=== PATIENT | male | born 1970 ===

== ENCOUNTER 2018-11-17 19:58 | Emergency (ER) | payer SELFPAY ==
[2018-11-17 20:53] LABS: CHLORIDE,CL 101 mmol/L (98-107); SODIUM,NA 137 mmol/L (136-148)
--- NOTE | 2018-11-17 21:19 | EDM.PDOC ---
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 No radiation to the neck, arm or bakc. His left chest is tender. The pain does not change with movement, deep breath or cough. He has not had any nausea or sweating. "a little shortness of breath". Patient has a history of spontaneous pneumothorax 2 and, according to the patient, a heart attack 7 years ago. chest area Pain Score (Numeric/FACES): 3 - Related Data Allergies Allergy/AdvReac Type Severity Reaction Status Date / Time No Known Allergies Allergy Verified 11/17/18 20:06 Home Meds: Home Meds Aspirin 81 mg PO DAILY 11/17/18 [History] Carvedilol 12.5 mg PO DAILY 11/17/18 [History] Cholecalciferol (Vitamin D3) [D-2000] 1 cap PO DAILY 11/17/18 [History] Lisinopril 10 mg PO DAILY 11/17/18 [History] atorvaSTATin [Lipitor] 20 mg PO BEDTIME 11/17/18 [History] Past Medical History HEENT History: Reports: None Cardiovascular History: Reports: High Cholesterol, Hypertension, Stents, Other ( See Below) Other Cardiovascular History: Heart Attck Respiratory History: Reports: None Gastrointestinal History: Reports: None Genitourinary History: Reports: None Musculoskeletal History: Reports: None Neurological History: Reports: None Psychiatric History: Reports: None Endocrine/Metabolic History: Reports: None Hematologic History: Reports: None Immunologic History: Reports: None Oncologic (Cancer) History: Reports: None Dermatologic History: Reports: None - Infectious Disease History Infectious Disease History: Reports: None - Past Surgical History Head Surgeries/Procedures: Reports: None Social & Family History - Family History Family Medical History: Noncontributory - Tobacco Use Smoking Status *Q: Never Smoker - Caffeine Use Caffeine Use: Reports: Energy Drinks - Recreational Drug Use Recreational Drug Use: No ED ROS GENERAL - Review of Systems Review Of Systems: ROS reveals no pertinent complaints other than HPI. ED EXAM, GENERAL - Physical Exam Exam: See Below Exam Limited By: No Limitations General Appearance: Alert, No Apparent Distress Ears: Normal External Exam, Normal TMs Nose: Normal Inspection Throat/Mouth: Normal Inspection, Normal Oropharynx Head: Atraumatic, Normocephalic Neck: Normal Inspection Respiratory/Chest: No Respiratory Distress, Lungs Clear, Normal Breath Sounds, Other (Tenderness left midclavicular line from nipple to a ICS) Cardiovascular: Normal Peripheral Pulses, Regular Rate, Rhythm, No Edema, No Murmur GI/Abdominal: Normal Bowel Sounds, Soft, Non-Tender, No Distention Back Exam: Normal Inspection Extremities: Normal Inspection Neurological: Alert, Oriented Psychiatric: Normal Affect, Normal Mood Skin Exam: Warm, Dry, Intact, Normal Color, No Rash Lymphatic: No Adenopathy Course - Vital Signs Last Recorded V/S: Last Vital Signs Temp 37.5 C 11/17/18 20:06 Pulse 83 11/17/18 20:06 Resp 18 11/17/18 20:06 BP 154/89 H 11/17/18 20:06 Pulse Ox 98 11/17/18 20:06 - Orders/Labs/Meds Orders: Active Orders 24 hr Category Date Time Status EKG 12 Lead [EKG Documentation Completion] [RC] STAT Care 11/17/18 20:35 Ordered Chest 2V [CR] Stat Exams 11/17/18 20:35 Ordered Labs: Laboratory Tests 11/17/18 11/17/18 Range/Units 20:15 20:15 WBC 6.11 (4.0-11.0) K/uL RBC 4.93 (4.50-5.90) M/uL Hgb 14.6 (13.0-17.0) g/dL Hct 42.6 (38.0-50.0) % MCV 86.4 (80.0-98.0) fL MCH 29.6 (27.0-32.0) pg MCHC 34.3 (31.0-37.0) g/dL RDW Std Deviation 40.4 (28.0-62.0) fl RDW Coeff of Carlos 13 (11.0-15.0) % Plt Count 243 (150-400) K/uL MPV 11.10 (7.40-12.00) fL Neut % (Auto) 49.2 (48.0-80.0) % Lymph % (Auto) 41.2 H (16.0-40.0) % Gaines % (Auto) 7.7 (0.0-15.0) % Eos % (Auto) 1.6 (0.0-7.0) % Baso % (Auto) 0.3 (0.0-1.5) % Neut # (Auto) 3.0 (1.4-5.7) K/uL Lymph # (Auto) 2.5 H (0.6-2.4) K/uL Gaines # (Auto) 0.5 (0.0-0.8) K/uL Eos # (Auto) 0.1 (0.0-0.7) K/uL Baso # (Auto) 0.0 (0.0-0.1) K/uL Nucleated RBC % 0.0 /100WBC Nucleated RBCs # 0 K/uL Sodium 137 (136-148) mmol/L Potassium 3.7 (3.5-5.1) mmol/L Chloride 101 (98-107) mmol/L Carbon Dioxide 24.8 (21.0-32.0) mmol/L BUN 19 H (7.0-18.0) mg/dL Creatinine 1.1 (0.8-1.3) mg/dL Est Cr Clr Drug Dosing 91.12 mL/min Estimated GFR (MDRD) > 60.0 ml/min Glucose 142 H (74-106) mg/dL Calcium 9.3 (8.5-10.1) mg/dL Total Bilirubin 0.5 (0.2-1.0) mg/dL AST 28 (15-37) IU/L ALT 61 (14-63) IU/L Alkaline Phosphatase 88 (46-116) U/L Troponin I < 0.050 (0.000-0.056) ng/mL C-Reactive Protein <0.20 (0.00-0.90) mg/dL Total Protein 7.9 (6.4-8.2) g/dL Albumin 4.2 (3.4-5.0) g/dL Globulin 3.7 (2.6-4.0) g/dL Albumin/Globulin Ratio 1.1 (0.9-1.6) Departure - Departure Time of Disposition: 21:38 Disposition: Home, Self-Care 01 Condition: Good Clinical Impression: Costochondritis Referrals: PCP,None [Primary Care Provider] - [facility] [Outside] [facility] [Outside] Forms: ED Department Discharge Additional Instructions: 1. Aleve 2 tabs morning and evening or ibuprofen 2-3 tabs every 8 hours as needed for discomfort 2. Follow-up in primary care 3. Return for chest pain particularly if it radiates to the neck or down the arms, nausea, shortness of breath or sweating - My Orders Last 24 Hours: My Active Orders 11/17/18 20:35 EKG 12 Lead [EKG Documentation Completion] [RC] STAT Chest 2V [CR] Stat - Assessment/Plan Last 24 Hours: My Active Orders 11/17/18 20:35 EKG 12 Lead [EKG Documentation Completion] [RC] STAT Chest 2V [CR] Stat
[2018-11-17] MEDS ORDERED: Ketorolac 60 MG/2 ML SDV IM ONE (21:35)
--- NOTE | 2018-11-17 21:38 | CR ---
INDICATION: Chest pain. COMPARISON: None available. FINDINGS: PA and lateral views of the chest were obtained. The lungs are clear. No focal or diffuse infiltrates are present. The heart is normal in size. The mediastinum is normal in appearance. The osseous structures are normal in appearance for the patient`s age. IMPRESSION: Normal chest 2 views. Dictated by Grayson Mariscal MD @ Nov 17 2018 9:36PM Signed by Dr. Grayson Mariscal @ Nov 17 2018 9:37PM
== END 2018-11-17 22:12 | disposition home or self-care (01) ==
LOC: MW.ED 19:58
DX: M94.0 Chondrocostal junction syndrome [Tietze] (principal); Z79.899 Other long term (current) drug therapy
CPT/HCPCS: 36415; 71046; 80053; 84484; 85025; 86140; 96372; 99285; J1885; 99283